=== PATIENT | female | born 2000 | race Caucasian/White ===

== ENCOUNTER 2021-11-23 04:33 | Emergency (ER) | payer OTHER ==
[~2021-11-23] VITALS: Ht 157.5 cm; Wt 69.2 kg
[2021-11-23] MEDS ORDERED: CLONAZEPAM0.5 MG PO (04:55)
[2021-11-23] MEDS ORDERED: DEXMETHYLPHENID10 MG PO (04:56)
[2021-11-23] MEDS ORDERED: LAMICTAL25 MG PO (04:56)
[2021-11-23] MEDS ORDERED: ELINEST1 EACH PO (04:56)
[2021-11-23] MEDS ORDERED: ONDANSETRON ODT8 MG PO (05:07)
--- OUTSIDE RECORDS SUMMARY | 2021-11-23 06:02 | XMS ---
PreManage Notification: NAVID HOWELL Security Chronograph Operator Events No recent Security Events currently on file CRITERIA MET [facility] There are no care providers on record at this time. Jessica has no Care Guidelines for this patient. [place] VISIT COUNT (12 MO.) 1 PATRICIA Rosis TOTAL 1 NOTE: Visits indicate total known visits. ED/UCC VISIT TRACKING (12 MO.) 11/23/2021 04:34 PATRICIA Méndez OR TYPE: Emergency COMPLAINT: - VOMITING, DIARRHEA, FATIGUE INPATIENT VISIT TRACKING (12 MO.) No inpatient visits to display in this time frame [email or web address]
== END 2021-11-23 05:18 | disposition home or self-care (01) ==
LOC: ED 04:33
DX: K52.9 Noninfective gastroenteritis and colitis, unspecified (principal); Z79.899 Other long term (current) drug therapy
CPT/HCPCS: 80053; 81001; 83690; 83735; 84703; 85025; 99283; A9270